=== PATIENT | female | born 1985 | race Caucasian/White ===

== ENCOUNTER 2021-01-07 12:14 | Emergency (ER) | payer OTHER, SELFPAY ==
--- NOTE | ~2021-01-07 | XR_ITS ---
XR chest 2V DATE: 01/07/2021 12:48 INDICATION: Cough, wheezing TECHNIQUE: PA and lateral views COMPARISON: 10/06/2020 2 view chest FINDINGS: Normal heart size. No hilar or mediastinal enlargement. No pulmonary infiltrate or consolid ation, pleural effusion or pulmonary vascular congestion or pneumothorax. IMPRESSION: No active cardiopulmonary disease Reviewed, dictated and finalized at location A.
--- NOTE | 2021-01-07 12:21 | ED.GENADULT ---
HPI - General Adult General Chief complaint: Upper Respiratory Infection Stated complaint: cough headache fatigue nause Time Seen by Provider: 01/07/21 12:22 Source: patient Mode of arrival: ambulatory Limitations: no limitations History of Present Illness HPI narrative: 35-year-old female patient presents to the [facility] with complaints of cold symptoms for the past 2 days. Patient states she has had a nonproductive cough and a little bit of shortness of breath. Patient denies of fevers but states she has had some body aches and chills. Patient states a little bit of congestion, sore throat and some ear pain. Patient states she has been taking some ibuprofen and had a leftover albuterol inhaler that she took 2 puffs of yesterday. Patient states that about a month ago she was diagnosed with bronchitis. Patient states it feels a lot like her bronchitis symptoms that she had about a month ago. Patient denies being positive for COVID-19 in the past 3 months. Patient denies any current chest pain at this time. Denies being around anybody with COVID-19 that she is aware of. Patient is an active smoker. Related Data Home Medications Medication Instructions Recorded Confirmed adalimumab [Humira(CF) Pen] 40 mg SUBCUT DIRECTED 01/07/21 01/07/21 bupropion HCl 150 mg PO DAILY 01/07/21 01/07/21 buspirone 10 mg PO DAILY 01/07/21 01/07/21 clonazepam 0.5 mg PO DAILY 01/07/21 01/07/21 escitalopram oxalate 10 mg PO DAILY 01/07/21 01/07/21 meloxicam 15 mg PO DAILY 01/07/21 01/07/21 methotrexate sodium 2.5 mg PO USEASDIRECTD MDD 6 TABS 01/07/21 01/07/21 EVERY 7 DAYS Allergies Allergy/AdvReac Type Severity Reaction Status Date / Time tramadol Allergy Unknown Verified 01/07/21 12:39 Review of Systems Review of Systems: Narrative: CONSTITUTIONAL: Denies fever, positive body aches and chills, denies sweats. EYES: Denies visual changes, redness, or discharge. ENT: Positive rhinorrhea, congestion, sore throat, and bilateral otalgia. CARDIOVASCULAR: Denies chest pain, palpitations, or edema. RESPIRATORY: Positive cough with intermittent dyspnea. GASTROINTESTINAL: Denies abdominal pain, nausea, vomiting, or diarrhea. GENITOURINARY: Denies dysuria or hematuria. SKIN: Denies rash or itching. MUSCULOSKELETAL: Denies back pain, joint pain, or myalgia. NEUROLOGIC: Positive headache, denies numbness, or weakness. PSYCHIATRIC: Denies anxiety or depression. [facility] Past Medical History Medical History (Updated 01/07/21 @ 12:59 by CICI Dave) Bronchitis Social History Social History Gender identity (if verbalized by the patient): Female Comments At the time of my signature I agree with nursing past medical history, surgical, social, and family history. There is no relevant family history pertinent to the presenting complaint. Exam Narrative: Exam Narrative: GENERAL: ill-appearing, well-nourished, and in no acute distress. HEAD: Normocephalic, atraumatic. EYES: PERRLA and EOMI. ENT: Nares with erythema and edema noted bilaterally, no rhinorrhea or epistaxis. Mucous membranes moist. Posterior pharynx with no erythema, tonsil larger, exudates or lesions present. Bilateral TMs are clear no erythema or foreign bodies to the canal. NECK: Supple. No lymphadenopathy CHEST: Patient has inspiratory and expiratory wheezing noted to bilateral upper and lower lobes. No respiratory distress. Patient able talk clear complete sentences. HEART: Regular rate and rhythm. No murmur heard. Normal peripheral pulses. ABDOMEN: Soft, nontender, nondistended, normal active bowel sounds. EXTREMITIES: Normal range of motion. No edema. SKIN: Warm, dry, no rash. NEURO: No focal deficits. Alert and oriented x3. Course Reevaluation(s) Reevaluation #1: Reevaluated patient after x-rays had test results had resulted. Notified patient that all of her test results came back negative that we will send a
[2021-01-07 12:29] VITALS: BP 151/98; PULSE 71; RESP 20; TEMP 36.6; O2SAT 98
[2021-01-07] MEDS: IPRATROPIUM BR 0.02% INH SOLN 0.5 MG/2.5 ML VIAL INHALATION (12:54)
[2021-01-07] MEDS: ALBUTEROL SULFATE NEB 2.5 MG/3 ML INH INHALATION (12:55)
[2021-01-09 19:28] LABS: SARS-CoV-2 RNA PCR Negative
== END 2021-01-07 13:29 | disposition home or self-care (01) ==
PROVIDERS: Emergency Provider Nurse Practitioner Family; PCP Nurse Practitioner Family
DX: J40 Bronchitis, not specified as acute or chronic (principal); Z20.822 Contact with and (suspected) exposure to COVID-19; I10 Essential (primary) hypertension; M19.90 Unspecified osteoarthritis, unspecified site
CPT/HCPCS: 71046; 87081; 87426; 87804; 87880; 99213; C9803; G0463; U0003; U0005